=== PATIENT | female | born 1995 | race Caucasian/White ===

== ENCOUNTER 2020-03-05 09:56 | Outpatient (CLI) | payer OTHER | END 2020-03-05 09:58 | disposition home or self-care (01) | LOC: RX STUDY 09:56 | DX: N70.11 Chronic salpingitis (principal) ==

== ENCOUNTER 2023-04-02 11:17 | Outpatient (CLI) | payer OTHER | END 2023-04-02 11:21 | disposition home or self-care (01) | LOC: PRENATAL 11:17 | PROVIDERS: ATTEND Obstetrics & Gynecology Maternal & Fetal Medicine | DX: O36.80X0 Pregnancy with inconclusive fetal viability, not applicable or unspecified (principal); Z36.82 Encounter for antenatal screening for nuchal translucency; O30.90 Multiple gestation, unspecified, unspecified trimester; O09.819 Supervision of pregnancy resulting from assisted reproductive technology, unspecified trimester; O99.280 Endocrine, nutritional and metabolic diseases complicating pregnancy, unspecified trimester; Z3A.12 12 weeks gestation of pregnancy ==

== ENCOUNTER 2023-05-20 08:02 | Outpatient (CLI) | payer OTHER | END 2023-05-20 08:03 | disposition home or self-care (01) | LOC: PRENATAL 08:02 | PROVIDERS: ATTEND Obstetrics & Gynecology Maternal & Fetal Medicine | DX: O35.9XX0 Maternal care for (suspected) fetal abnormality and damage, unspecified, not applicable or unspecified (principal); O35.3XX0 Maternal care for (suspected) damage to fetus from viral disease in mother, not applicable or unspecified; O44.00 Complete placenta previa NOS or without hemorrhage, unspecified trimester; O30.90 Multiple gestation, unspecified, unspecified trimester; O09.819 Supervision of pregnancy resulting from assisted reproductive technology, unspecified trimester; O99.280 Endocrine, nutritional and metabolic diseases complicating pregnancy, unspecified trimester; Z3A.19 19 weeks gestation of pregnancy ==

== ENCOUNTER 2023-07-24 17:57 | Outpatient (CLI) | payer OTHER ==
[2023-07-24] MEDS ORDERED: CHILDREN'S ASPI81 MG PO (18:51)
[2023-07-24] MEDS ORDERED: LEVOTHYROXINE25 MCG PO (18:51)
[2023-07-24] MEDS ORDERED: PRENATAL TABLE1 EAC1 PO (18:52)
[2023-07-24] MEDS ORDERED: BETAMETHASONE ACETATE,SOD PHOS 30 MG/5 ML ML ONE (19:04)
[2023-07-24 19:13] LABS: HEMATOCRIT 30.8 % (36.0-45.00); HEMOGLOBIN 10.9 g/dL (12.0-15.00); MEAN CELL VOLUME 91.4 fL (80.00-100.00); MEAN CORPUSCULAR HEMOGLOBIN 32.4 pg (27.00-32.0); MEAN CORPUSCULAR HGB CONC 35.4 g/dl (32.0-36.0); PH,URINE 5.5 (5.0-8.0); PLATELET COUNT 240 K/uL (150-450); RED BLOOD COUNT 3.37 M/uL (4.00-6.00); RED CELL DISTRIBUTION WIDTH 12.8 % (11.5-14.5); URINE APPEARANCE Cloudy; URINE BILIRRUBIN Negative (NEGATIVE); URINE BLOOD Negative; URINE COLOR Yellow; URINE GLUCOSE Negative (NEGATIVE); URINE LEUKOCYTE Trace; URINE NITRATE Negative; URINE PROTEIN Negative (NEGATIVE); URINE UROBILINOGEN 0.2 E.U./dl
[2023-07-24 19:14] LABS: URINE BACTERIA 1733.7 uL (0.0-1933); URINE RBC 2.4 uL (0.0-20.8); URINE WBC 73.4 uL (0.0-23.2)
[2023-07-24] MEDS ORDERED: AMPICILLIN SODIUM 2,000 MG VIAL IV ONE (19:30)
[2023-07-24] MEDS ORDERED: RINGERS SOLUTION,LACTATED 1,000 ML IV SCH (19:30)
[2023-07-24] MEDS ORDERED: BETAMETHASONE ACETATE,SOD PHOS 30 MG/5 ML ML IM ONE (19:30)
[2023-07-24] MEDS ORDERED: NIFEDIPINE 20 MG CAPSULE PO ONE ×2 (19:30→23:10)
[2023-07-24 19:34] LABS: URINE MUCUS SCANT
[2023-07-24 19:44] LABS: ALBUMIN 2.6 gm/dL (3.4-5.0); BILIRUBIN TOTAL 0.44 mg/dL (0.3-1.2); CALCIUM 8.6 mg/dL (8.5-10.1); CREATININE SERUM 0.73 mg/dL (0.55-1.02); GFR 93.61; GLOBULINA 3.3 G/DL (2.4-3.5); POTASSIUM 3.86 mEq/L (3.5-5.1); TOTAL PROTEIN 5.9 gm/dL (6.4-8.2)
[2023-07-24] MEDS ORDERED: NIFEDIPINE 10 MG CAPSULE PO ONE (23:00)
[2023-07-25] MEDS ORDERED: AMPICILLIN SODIUM 1,000 MG VIAL IV SCH
[2023-07-25] MEDS ORDERED: NIFEDIPINE 20 MG CAPSULE PO SCH (04:00)
[2023-07-25] MEDS ORDERED: NIFEDIPINE 30 MG TAB.SA.OSM PO SCH (11:56)
[2023-07-25] MEDS ORDERED: BETAMETHASONE ACETATE,SOD PHOS 30 MG/5 ML ML IM ONE (19:05)
== END 2023-07-25 20:36 | disposition home or self-care (01) ==
LOC: OBS/DEL 17:57
PROVIDERS: ATTEND Student in an Organized Health Care Education/Training Program
DX: O30.043 Twin pregnancy, dichorionic/diamniotic, third trimester (principal); O47.03 False labor before 37 completed weeks of gestation, third trimester; Z3A.28 28 weeks gestation of pregnancy

== ENCOUNTER 2023-07-27 00:51 | Outpatient (CLI) | payer OTHER ==
[~2023-07-27 00:51] MED LIST: CHILDREN'S ASPI81 MG PO; LEVOTHYROXINE25 MCG PO; PRENATAL TABLE1 EAC1 PO
[2023-07-27] MEDS ORDERED: RINGERS SOLUTION,LACTATED 1,000 ML IV SCH (08:45)
== END 2023-07-27 18:06 | disposition home or self-care (01) ==
LOC: OBS/DEL 00:51
PROVIDERS: ATTEND Obstetrics & Gynecology
DX: O26.893 Other specified pregnancy related conditions, third trimester (principal); O30.043 Twin pregnancy, dichorionic/diamniotic, third trimester; Z3A.28 28 weeks gestation of pregnancy; I95.9 Hypotension, unspecified